=== PATIENT | male | born 1960 | race Two or more races ===

== ENCOUNTER 2019-06-23 12:53 | Emergency (ER) | payer SELFPAY ==
[2019-06-23 13:02] VITALS: BP 116/85
--- NOTE | 2019-06-23 13:20 | ER Document Report ---
ED General - General Chief Complaint: Knee Injury Stated Complaint: LEFT KNEE INJURY Time Seen by Provider: 06/23/19 13:07 Primary Care Provider: DAYNE ROWLAND PA-C [Primary Care Provider] - Follow up in 3-5 days Notes: 58-year-old male presents with left knee pain that is been ongoing for more than 3 months. Patient denies a specific injury but states it only happens when he kneels down on his knee. Patient states he is able to walk on it without any difficulty. Patient states he works in construction. Patient denies any fever. Patient denies any other injuries or pain. TRAVEL OUTSIDE OF THE [place] IN LAST 30 DAYS: No - Related Data Allergies/Adverse Reactions: onion Allergy (Verified 06/23/19 13:10) Past Medical History - Social History Smoking Status: Current Every Day Smoker Frequency of alcohol use: Heavy Family History: Reviewed & Not Pertinent Patient has suicidal ideation: No Patient has homicidal ideation: No Psychiatric Medical History: Reports: Hx Depression - Immunizations Hx Diphtheria, Pertussis, Tetanus Vaccination: Yes Review of Systems - Review of Systems Notes: Constitutional: Negative for fever. HENT: Negative for sore throat. Eyes: Negative for visual changes. Cardiovascular: Negative for chest pain. Respiratory: Negative for shortness of breath. Gastrointestinal: Negative for abdominal pain, vomiting or diarrhea. Genitourinary: Negative for dysuria. Musculoskeletal: Positive for left knee pain. Negative for back pain. Skin: Negative for rash. Neurological: Negative for headaches, weakness or numbness. 10 point ROS negative except as marked above and in HPI. Physical Exam - Vital signs Vitals: Temp Pulse Resp BP Pulse Ox 97.6 F 83 16 116/85 99 06/23/19 13:00 06/23/19 13:00 06/23/19 13:00 06/23/19 13:06/23/19 13:00 - Notes Notes: GENERAL: Well-appearing, well-nourished and in no acute distress. HEAD: Atraumatic, normocephalic. EYES: Extraocular movements intact, sclera anicteric, conjunctiva are normal. NECK: Normal range of motion, supple without lymphadenopathy or JVD. EXTREMITIES: Normal range of motion, no pitting or edema. No clubbing or cyanosis. Left knee: Mild tenderness inferiorly. No pain with flexion/extension. Pt is able to bear weight without difficulty. NEUROLOGICAL: Cranial nerves II through XII grossly intact. Normal speech, nor mal gait. PSYCH: Normal mood, normal affect. SKIN: Warm, Dry, normal turgor, no rashes or lesions noted. Course - Re-evaluation Re-evalutation: 06/23/19 Nontoxic, well appearing 58 y/o male presents for left knee pain > 3 months. No injury. Mild tenderness inferiorly to left knee. No pain with flexion/extension. Able to bear weight. X-ray shows degenerative changes but no fractures. Pt given prescription for naproxen and follow up with PCP. Discussed results with pt and pt also given copy of x-ray report. Return precautions gi regino. Pt voices understanding and agrees with plan of care. - Vital Signs Vital signs: Temp Pulse Resp BP Pulse Ox 97.6 F 83 16 116/85 99 06/23/19 13:00 06/23/19 13:00 06/23/19 13:00 06/23/19 13:00 06/23/19 13:00 Discharge - Discharge Clinical Impression: Left knee pain Qualifiers: Chronicity: unspecified Qualified Code(s): M25.562 - Pain in left knee Condition: Stable Disposition: HOME, SELF-CARE Instructions: [facility] ([facility]) Additional Instructions: Your x-ray shows degenerative changes most likely arthritis however shows no fractures. Please take naproxen as prescribed. Please follow-up with your primary care doctor in 3 to 5 days. Return immediately to ER if you start having any worsening symptoms, including redness to area, increased swelling, area feeling hotter to touch than the rest of the skin, inability to walk on your leg, fever, chest pain, shortness of breath, or any other symptoms that are concerning to you. Prescriptions: Naproxen 500 mg PO BID PRN #14 tablet PRN Reason: Forms: Return to Work Referrals: DAYNE ROWLAND PA-C [Primary Care Provider] - Follow up in 3-5 days
--- NOTE | 2019-06-23 13:40 | RADIOLOGY REPORT (SQ) ---
EXAM DESCRIPTION: KNEE LEFT 3 VIEWS COMPLETED DATE/TIME: 06/23/2019 1:31 pm REASON FOR STUDY: left knee pain COMPARISON: None. NUMBER OF VIEWS: Three views. TECHNIQUE: AP, lateral, and sunrise patella radiographic images acquired of the left knee. LIMITATIONS: None. FINDINGS: MINERALIZATION: Normal. BONES: No acute fracture or dislocation. No worrisome bone lesions. JOINT: No effusion. Tiny patellofemoral and medial compartment osteophytes. Mild medial joint space loss SOFT TISSUES: No soft tissue swelling. No radio-opaque foreign body. OTHER: No other significant finding. IMPRESSION: No acute bony abnormality. Minimal bi-compartment degenerative change. TECHNICAL DOCUMENTATION: JOB ID: [id number] [employer]- All Rights Reserved Reading location - IP/workstation name: [email or web address]
== END 2019-06-23 14:05 | disposition home or self-care (01) ==
LOC: ER 12:53
DX: M25.562 Pain in left knee (principal); F17.200 Nicotine dependence, unspecified, uncomplicated
CPT/HCPCS: 99283